=== PATIENT | male | born 1940 | race Two or more races ===

== ENCOUNTER 2019-01-26 09:13 | Emergency (ER) | payer OTHER ==
[2019-01-26 09:23] VITALS: BMI 25.0
[2019-01-26] MEDS ORDERED: ACETAMINOPHEN 325 MG TABLET (FP) PO ONE (10:15)
[2019-01-26] MEDS ORDERED: ACETAMINOPHEN 325 MG TABLET (FP) ONE (10:17)
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
[2019-01-26 12:32] VITALS: BP 112/76; PULSE 59; TEMP 98
== END 2019-01-26 12:30 | disposition home or self-care (01) ==
LOC: JER 09:13
DX: S06.0X0A Concussion without loss of consciousness, initial encounter (principal); I25.10 Atherosclerotic heart disease of native coronary artery without angina pectoris; I10 Essential (primary) hypertension; Z95.1 Presence of aortocoronary bypass graft; V43.52XA Car driver injured in collision with other type car in traffic accident, initial encounter; Y93.89 Activity, other specified; Y92.410 Unspecified street and highway as the place of occurrence of the external cause
CPT/HCPCS: 70450-TC; 99282-25